=== PATIENT | male | born 1960 | race Caucasian/White ===

== ENCOUNTER 2017-08-12 19:35 | Emergency (ER) | payer OTHER ==
[2017-08-12 20:07] VITALS: BP 125/79; PULSE 103; RESP 18; TEMP 97.5
[2017-08-12] MEDS ORDERED: HYDROmorphone 1 MG/ML 1 ML SYRINGE IM STA (21:09)
--- NOTE | 2017-08-12 21:12 | ED ---
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) Associated Symptoms: denies other symptoms Treatments Prior to Arrival: other (None) - Related Data Home Medications Medication Instructions Recorded Confirmed Ascorbic Acid [Vitamin C] 500 mg PO DAILY 08/12/17 08/12/17 guaiFENesin SYRUP 100MG/5ML 200 mg PO DAILY PRN 08/12/17 08/12/17 [Robitussin] guaiFENesin [Mucinex] 600 mg PO DAILY PRN 08/12/17 08/12/17 Previous Rx's Medication Instructions Recorded Hydrocodone/Acetaminophen [[place] 1 tab PO Q6HR PRN #12 tab 08/12/17 5-325] Allergies Allergy/AdvReac Type Severity Reaction Status Date / Time No Known Allergies Allergy Verified 08/12/17 21:17 Review of Systems ROS Statement: Those systems with pertinent positive or pertinent negative responses have been documented in the HPI. ROS Other: All systems not noted in ROS Statement are negative. Past Medical History Additional Past Medical History / Comment(s): back pain History of Any Multi-Drug Resistant Organisms: None Reported Past Surgical History: No Surgical Hx Reported Past Psychological History: No Psychological Hx Reported Smoking Status: Never smoker Past Alcohol Use History: None Reported Past Drug Use History: None Reported General Exam Limitations: no limitations General appearance: alert, anxious Head exam: Present: atraumatic, normocephalic, normal inspection Eye exam: Present: normal appearance. Absent: scleral icterus, conjunctival injection, periorbital swelling, periorbital tenderness ENT exam: Present: normal exam, mucous membranes moist, normal external ear exam Neck exam: Present: normal inspection, full ROM. Absent: tenderness, lymphadenopathy Respiratory exam: Present: normal lung sounds bilaterally. Absent: respiratory distress, wheezes, rales, rhonchi Cardiovascular Exam: Present: regular rate, tachycardia, normal heart sounds. Absent: systolic murmur GI/Abdominal exam: Present: soft, normal bowel sounds. Absent: distended, tenderness Extremities exam: Present: normal inspection, full ROM, normal capillary refill. Absent: tenderness, joint swelling Back exam: Present: paraspinal tenderness (Right sided lumbar region). Absent: full ROM (Painful with flexion, extension, and rotation), CVA tenderness (R), CVA tenderness (L), muscle spasm, vertebral tenderness, rash noted Expanded Back exam: Absent: saddle anesthesia Back exam: Sciatic Notch Tenderness: Left, Negative Straight Leg Raising: Left, Right Neurological exam: Present: alert, oriented X3, CN II-XII intact, normal gait, other (No foot drop present.). Absent: motor sensory deficit Psychiatric exam: Present: anxious Skin exam: Present: warm, dry, intact, normal color Course Vital Signs 08/12/17 20:04 Temperature 97.5 F L Pulse Rate 103 H Respiratory 18 Rate Blood Pressure 125/79 O2 Sat by Pulse 93 L Oximetry Medical Decision Making - Medical Decision Making Acute on chronic lumbar back pain with chronic right-sided sciatica. Patient given 1 mg of Dilaudid IV for breakthrough pain with improvement. Patient instructed to follow-up with primary care physician. Patient instructed to return to the emergency department with any new or worsening symptoms. Discharged instructions and return parameters reviewed. Disposition Clinical Impression: Acute exacerbation of chronic low back pain Disposition: HOME SELF-CARE Condition: Good Instructions: Chronic Back Pain (ED) Additional Instructions: Please follow-up with primary care physician for chronic pain management. Return to the emergency department with any new or worsening symptoms. Continue Tylenol or Motrin for pain. Continue cold or warm compresses. Prescriptions: Hydrocodone/Acetaminophen [[place] 5-325] 1 tab PO Q6HR PRN #12 tab PRN Reason: Pain Referrals: Nonstaff,Physician [Primary Care Provider] - 1-2 days Ty Grant MD [STAFF PHYSICIAN] - 1-2 days Time of Disposition: 21:12
== END 2017-08-12 21:30 | disposition home or self-care (01) ==
LOC: EC 19:35
DX: G89.29 Other chronic pain (principal); M54.5 Low back pain; Z79.899 Other long term (current) drug therapy; X50.9XXA Other and unspecified overexertion or strenuous movements or postures, initial encounter; Y99.0 Civilian activity done for income or pay; Y92.69 Other specified industrial and construction area as the place of occurrence of the external cause
CPT/HCPCS: 99283; 96372; J1170